=== PATIENT | male | born 1985 | race Hispanic/Latino ===

== ENCOUNTER 2018-04-14 21:32 | Emergency (ER) | payer OTHER, SELFPAY | END 2018-04-14 21:55 | disposition home or self-care (01) | LOC: MADERS 21:32 | DX: I10 Essential (primary) hypertension (principal) | CPT/HCPCS: 99282 ==

== ENCOUNTER 2021-09-03 14:52 | Emergency (ER) | payer OTHER ==
[2021-09-03] MEDS ORDERED: predniSONE 20 MG TAB ONE (16:18)
[2021-09-03] MEDS ORDERED: predniSONE 10 MG TAB ONE (16:18)
== END 2021-09-03 17:48 | disposition home or self-care (01) ==
LOC: MADERS 14:52
DX: R06.2 Wheezing (principal); R05.9 Cough, unspecified; R52 Pain, unspecified; R06.02 Shortness of breath; I10 Essential (primary) hypertension; Z20.822 Contact with and (suspected) exposure to COVID-19
CPT/HCPCS: 71045; 93005; J7512; J7620; U0003; U0005